=== PATIENT | male | born 1985 | race Hispanic/Latino ===

== ENCOUNTER 2016-11-06 19:25 | Emergency (ER) | payer SELFPAY ==
[2016-11-07 03:28] VITALS: BP 156/92
[2016-11-07] MEDS ORDERED: MOTRIN ONE (04:25)
[2016-11-07] MEDS ORDERED: MOTRIN PO ONE (04:27)
--- NOTE | 2016-11-07 05:55 | Emergency Department Report ---
Chief Complaint: Pain General Stated Complaint: TOOTH PAIN - HPI History of Present Illness: 31-year-old male comes in for tooth pain 1 week. Patient reports he taken Advil without much relief of pain. - Exam Vital Signs: Vital Signs 11/06/16 11/07/16 22:09 03:27 Temperature 98.8 F 98.9 F Pulse Rate 100 H 76 Respiratory 16 18 Rate Blood Pressure 158/102 Blood Pressure 156/92 [Left] O2 Sat by Pulse 99 97 Oximetry Physical Exam: Patient's alert and oriented 3 mouth teeth are decayed down to the gums front teeth as well as back teeth. There is no gingival enlargement MSE screening note: Focused history and physical exam performed. Due to findings the following was ordered: Patient's been evaluated by this provider we will NME him. ED Disposition for MSE Condition: Stable Referrals: PRIMARY CARE, [Primary Care Provider] - 3-5 Days
== END 2016-11-07 05:00 | disposition left against medical advice (07) ==
LOC: ED 19:25
DX: K08.89 Other specified disorders of teeth and supporting structures (principal); Z53.21 Procedure and treatment not carried out due to patient leaving prior to being seen by health care provider